=== PATIENT | male | born 1995 | race Caucasian/White ===

== ENCOUNTER 2017-02-21 22:46 | Emergency (ER) | payer SELFPAY ==
[2017-02-22 01:24] VITALS: BP 130/65
--- NOTE | 2017-05-10 11:15 | ED ---
Medical Screening - HPI Summary HPI Summary: Patient presents requesting STD testing to establish a baseline status. He has had unprotected sex in the past but denies symptoms. - History of Current Complaint Chief Complaint: EDGeneral Stated Complaint: STD TESTING Time Seen by Provider: 02/22/17 00:52 Onset/Duration: Atraumatic Associated Signs and Symptoms: Negative PMH/Surg Hx/FS Hx/Imm Hx Previously Healthy: Yes Infectious Disease History: No Infectious Disease History: Denies: Traveled Outside the [place] in Last 30 Days - Family History Known Family History: Positive: None - Social History Occupation: Employed Full-time Lives: With Family Alcohol Use: None Substance Use Type: Reports: None Smoking Status (MU): Never Smoked Tobacco Type: Smokeless Tobacco Cessation Counseling: Patient Advised to Stop Review of Systems All Other Systems Reviewed And Are Negative: Yes Physical Exam Triage Information Reviewed: Yes Vital Signs On Initial Exam: Initial Vitals Temp Pulse Resp BP Pulse Ox 98.3 F 85 18 137/57 100 02/21/17 23:50 02/21/17 23:50 02/21/17 23:50 02/21/17 23:50 02/21/17 23:50 Vital Signs Reviewed: Yes Appearance: Positive: Well-Appearing, No Pain Distress, Well-Nourished Skin: Positive: Warm, Skin Color Reflects Adequate Perfusion, Dry, Soft Head/Face: Positive: Normal Head/Face Inspection Eyes: Positive: EOMI, JENNIFER, Conjunctiva Clear ENT: Positive: Hearing grossly normal Respiratory/Lung Sounds: Positive: Breath Sounds Present Cardiovascular: Positive: RRR Musculoskeletal: Negative: Edema Left, Edema Right Neurological: Positive: Sensory/Motor Intact, Alert, Oriented to Person Place, Time, Normal Gait Psychiatric: Positive: Affect/Mood Appropriate AVPU Assessment: Alert Diagnostics - Vital Signs Vital Signs Temp Pulse Resp BP Pulse Ox 02/22/17 01:20 99 F 76 18 130/65 98 02/21/17 23:50 98.3 F 85 18 137/57 100 - Laboratory Lab Results: Lab Results 02/22/17 02/22/17 02/22/17 Range/Units 01:49 01:49 01:50 C.trachomatis (Amp Det) Negative (Negative) Hepatitis B Antibody Nonreactive (Nonreactive) Hep Bs Antigen Nonreactive (Nonreactive) Hep Bs Antibody, Quant < 3.10 (<12) mIU/mL Hepatitis C Antibody Nonreactive (Nonreactive) HIV 1&2 Antibody Nonreactive (Nonreactive) N.gonorrhoeae (Amp Det) Negative (Negative) Lab Statement: Any lab studies that have been ordered have been reviewed, and results considered in the medical decision making process. Course/Dx - Diagnoses Provider Diagnoses: Screen for STD (sexually transmitted disease) Discharge - Discharge Plan Condition: Stable Disposition: HOME Patient Education Materials: Sexually Transmitted Diseases (ED), Safe Sex (ED) Referrals: Valerie Shipman MS [Primary Care Provider] - Additional Instructions: If you have positive results you will be called by the emergency department to discuss a treatment plan. Follow-up with your primary care provider for further concerns.
== END 2017-02-22 02:00 | disposition home or self-care (01) ==
LOC: ED 22:46
DX: Z20.2 Contact with and (suspected) exposure to infections with a predominantly sexual mode of transmission (principal); Z11.3 Encounter for screening for infections with a predominantly sexual mode of transmission
CPT/HCPCS: 36415; 86703; 86706; 86803; 87340; 87491; 87591; 99282

== ENCOUNTER 2017-02-25 23:17 | Emergency (ER) | payer SELFPAY ==
[2017-02-25 23:23] VITALS: BP 150/69
--- NOTE | 2017-02-26 08:04 | RAD ---
INDICATION: Neck pain COMPARISON: Cervical spine January 13, 2015 TECHNIQUE: Routine five-view imaging was performed FINDINGS: Bones: There are no acute bony findings. There are no significant osteoarthritic findings. Craniocervical junction: The odontoid and atlantodental interval are normal. Alignment: Chronic reversal normal cervical lordosis Disc spaces: The disc spaces are well-maintained Soft tissues: The prevertebral soft tissues are normal. IMPRESSION: CHRONIC REVERSAL NORMAL CERVICAL LORDOSIS, OTHERWISE NEGATIVE
== END 2017-02-26 01:50 | disposition left against medical advice (07) ==
LOC: ED 23:17
DX: M54.2 Cervicalgia (principal); Z53.21 Procedure and treatment not carried out due to patient leaving prior to being seen by health care provider
CPT/HCPCS: 72050

== ENCOUNTER 2017-03-26 13:30 | Emergency (ER) | payer SELFPAY ==
[2017-03-26 15:33] VITALS: BP 139/75
--- NOTE | 2017-03-26 16:21 | UC ---
Throat Pain/Nasal Jakob HPI - HPI Summary HPI Summary: 21 y/o male presents to the urgent clinic /o of sore throat constantine yesterday. Patient state he also has mild fever, headache and difficulty swallowing. Patient denies SOB, cough, nasal discharge, N/V/D. - History of Current Complaint Chief Complaint: UCRespiratory Stated Complaint: SORE THROAT, HEADACHE Time Seen by Provider: 03/26/17 16:04 Hx Obtained From: Patient Onset/Duration: Sudden Onset, Lasting Hours, Still Present Severity: Moderate Pain Intensity: 4 - headache Pain Scale Used: 0-10 Numeric Cough: None Associated Signs & Symptoms: Positive: Dysphagia, Fever. Negative: Sinus Discomfort, Nasal Discharge, Vomiting, Rash - Epiglottits Risk Factors Epiglottis Risk Factors: Negative - Allergies/Home Medications Allergies/Adverse Reactions: Allergies Allergy/AdvReac Type Severity Reaction Status Date / Time Bee Venom Allergy Swelling Verified 03/26/17 15:28 Of Face,Lips,& Throat PMH/Surg Hx/FS Hx/Imm Hx Previously Healthy: Yes - Surgical History Surgical History: None - Family History Known Family History: Positive: Diabetes - Social History Occupation: Employed Full-time Alcohol Use: None Substance Use Type: None Smoking Status (MU): Never Smoked Tobacco Type: Smokeless Tobacco Review of Systems Constitutional: Fever - mild Skin: Negative Eyes: Negative ENT: Sore Throat, Other - difficulty swallowing Respiratory: Negative Cardiovascular: Negative Genitourinary: Negative Motor: Negative Neurovascular: Negative Musculoskeletal: Negative Neurological: Negative Psychological: Negative All Other Systems Reviewed And Are Negative: Yes Physical Exam Triage Information Reviewed: Yes Appearance: Well-Appearing, No Pain Distress, Well-Nourished, Thin Vital Signs: Initial Vital Signs Temp 98.2 F 03/26/17 15:29 Pulse 79 03/26/17 15:29 Resp 16 03/26/17 15:29 BP 139/75 03/26/17 15:29 Pulse Ox 99 03/26/17 15:29 Vital Signs Reviewed: Yes Eye Exam: Normal ENT: Positive: Hearing grossly normal, Pharyngeal erythema, Tonsillar swelling, Tonsillar exudate. Negative: Nasal drainage, TMs normal Dental Exam: Normal Neck exam: Normal Neck: Positive: Supple, Nontender, Enlarged Nodes @ - mildly tender anterior cervical lymphnodes Respiratory Exam: Normal Respiratory: Positive: Chest non-tender, Lungs clear, Normal breath sounds Cardiovascular Exam: Normal Cardiovascular: Positive: RRR, No Murmur, Pulses Normal Abdominal Exam: Normal Abdomen Description: Positive: Nontender, No Organomegaly Bowel Sounds: Positive: Present Musculoskeletal Exam: Normal Neurological Exam: Normal Psychological Exam: Normal Skin Exam: Normal Throat Pain/Nasal Course/Dx - Course Course Of Treatment: Pharyngitis:21 y/o male presents to the urgent clinic /o of sore throat constantine yesterday. Patient state he also has mild fever, headache and difficulty swallowing. Patient denies SOB, cough, nasal discharge, N/V/D. PE:Pharyngeal erythema, Tonsillar swelling, Tonsillar exudate. Negative: Nasal drainage, TMs normal. Rapid strep ordered. result:negative. Most likely viral pharyngitis. - Differential Dx/Diagnosis Differential Diagnosis/HQI/PQRI: Laryngitis, Mononucleosis, Pharyngitis, Sinusitis, Tonsillitis, URI Provider Diagnoses: Pharyngitis, headache Discharge - Discharge Plan Condition: Stable Disposition: HOME Prescriptions: Ibuprofen TAB* [Motrin TAB* 600 MG] 600 mg PO Q6H PRN #20 tab PRN Reason: Pain Patient Education Materials: Pharyngitis (ED) Forms: *Work Release Referrals: Zoie ALCOCERP,Valerie [Primary Care Provider] - Additional Instructions: Please take medications as instructed to alleviate symptoms. If symptoms worsen please retun to the urgent care or follow up with your PCP for further evaluation and treatment.
== END 2017-03-26 16:49 | disposition home or self-care (01) ==
LOC: UCEAST 13:30
DX: J02.9 Acute pharyngitis, unspecified (principal); R51 Headache; Z91.030 Bee allergy status; Z77.22 Contact with and (suspected) exposure to environmental tobacco smoke (acute) (chronic)
CPT/HCPCS: 87651; 99212; G0463

== ENCOUNTER 2017-04-12 09:17 | Emergency (ER) | payer SELFPAY ==
--- NOTE | 2017-04-12 09:47 | UC ---
Throat Pain/Nasal Jakob HPI - History of Current Complaint Chief Complaint: UCRespiratory Stated Complaint: THROAT COMPLAINT Hx Obtained From: Patient Onset/Duration: Gradual Onset - has had URI symps for 3 weeks, was seen here 3 weeks ago and dx URI (no meds Rx'd). seemed a bit better until 2 days ago when throat became very sore and this am he feels worse, body aches, ST. tried tylenol but not helping anymore Associated Signs & Symptoms: Positive: Negative - Allergies/Home Medications Allergies/Adverse Reactions: Allergies Allergy/AdvReac Type Severity Reaction Status Date / Time Bee Venom Allergy Swelling Verified 04/12/17 09:32 Of Face,Lips,& Throat PMH/Surg Hx/FS Hx/Imm Hx Previously Healthy: Yes - Surgical History Surgical History: None - Family History Known Family History: Positive: Diabetes - Social History Occupation: Employed Full-time - [employer] Alcohol Use: Rare Substance Use Type: None Smoking Status (MU): Never Smoked Tobacco Type: Smokeless Tobacco Review of Systems Constitutional: Chills, Other - body aches today Skin: Negative ENT: Sore Throat Respiratory: Cough - mild, dry "because of my ST" Cardiovascular: Negative Gastrointestinal: Negative Psychological: Negative All Other Systems Reviewed And Are Negative: Yes Physical Exam Triage Information Reviewed: Yes Appearance: Well-Appearing, No Pain Distress, Well-Nourished Vital Signs: Initial Vital Signs Temp 100.3 F 04/12/17 09:26 Pulse 93 04/12/17 09:26 Resp 16 04/12/17 09:26 Pulse Ox 97 04/12/17 09:26 Vital Signs Reviewed: Yes Eyes: Positive: Conjunctiva Clear ENT: Positive: Pharyngeal erythema, TMs normal, Tonsillar swelling Neck: Positive: Enlarged Nodes @ - L ant cervical Respiratory Exam: Normal Respiratory: Positive: Lungs clear Cardiovascular Exam: Normal Abdominal Exam: Normal Psychological Exam: Normal Skin Exam: Normal Throat Pain/Nasal Course/Dx - Differential Dx/Diagnosis Differential Diagnosis/HQI/PQRI: Pharyngitis, Tonsillitis, URI, Other - strep throat Provider Diagnoses: strep throat Discharge - Discharge Plan Condition: Stable Disposition: HOME Prescriptions: Azithromycin TAB* [Zithromax TAB (Z-ALANA) 250 mg #6 tabs] 2 tab PO .TODAY, THEN 1 DAILY #1 alana Patient Education Materials: Strep Throat (ED) Referrals: Zoie ALCOCERP,Valerie [Primary Care Provider] - 3 Days (if no better) Additional Instructions: drink plenty of fluids use ibuprofen 600-800mg every 6 hours as needed for pain take zithromax as prescribed
== END 2017-04-12 10:13 | disposition home or self-care (01) ==
LOC: UCEAST 09:17
DX: J02.0 Streptococcal pharyngitis (principal)
CPT/HCPCS: 87651; 99212; G0463

== ENCOUNTER 2018-02-13 22:41 | Emergency (ER) | payer SELFPAY ==
[2018-02-14 01:05] VITALS: BP 138/67
--- NOTE | 2018-02-14 01:34 | UC ---
Upper Extremity HPI - HPI Summary HPI Summary: C/O LEFT SIDE NECK PAIN, AND LEFT UE TINGLING X 3 DAYS. HX OF SAME ONCE ONE MONTH AGO. 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 DENIES SPECIFIC TRAUMA EVENT, LOSS OF SENSATION OR FUNCTION DISTALLY IN LEFT UE, ANDERSON, NECK STIFFNESS, N/V, FEVER. HAS NOT TAKEN MEDICATION. MED HX = NONE - History of Current Complaint Chief Complaint: EDGeneral Stated Complaint: NUMBNESS IN NECK AND LT ARM Time Seen by Provider: 02/14/18 00:08 Hx Obtained From: Patient Onset/Duration: Gradual Onset Severity Initially: Mild Severity Currently: Moderate Pain Intensity: 3 Pain Scale Used: 0-10 Numeric Location Of Pain: Is Discrete @, Radiates To - LEFT UE Character: Sharp, Aching Aggravating Factor(s): Internal/External Rotation Alleviating Factor(s): Rest Associated Signs And Symptoms: Positive: Numbness/Tingling Related History: Similar Episode/Dx As - Risk Factors DVT Risk Factors: Negative Septic Arthritis Risk Factor: Negative Compartment Syndrome Risk Factors: Pain - Allergies/Home Medications Allergies/Adverse Reactions: Allergies Allergy/AdvReac Type Severity Reaction Status Date / Time bee venom protein (honey bee) Allergy Swelling Verified 02/13/18 22:49 Of Face,Lips,& Throat Home Medications: Home Medications NK [No Home Medications Reported] 02/14/18 [History Confirmed 02/14/18] PMH/Surg Hx/FS Hx/Imm Hx Previously Healthy: Yes - Surgical History Surgical History: None - Family History Known Family History: Positive: Diabetes - Social History Alcohol Use: Rare Substance Use Type: None Smoking Status (MU): Never Smoked Tobacco Type: Smokeless Tobacco Review of Systems Constitutional: Negative Skin: Negative Eyes: Negative ENT: Negative Respiratory: Negative Cardiovascular: Negative Gastrointestinal: Negative Genitourinary: Negative Motor: Negative Neurovascular: Negative Musculoskeletal: Myalgia Neurological: Negative Psychological: Negative Is Patient Immunocompromised?: No All Other Systems Reviewed And Are Negative: Yes Physical Exam Triage Information Reviewed: Yes Appearance: Well-Appearing Vital Signs: Initial Vital Signs Temp 98.8 F 02/13/18 22:45 Pulse 100 02/13/18 22:45 Resp 20 02/13/18 22:45 BP 144/80 02/13/18 22:45 Pulse Ox 96 02/13/18 22:45 Vital Signs Reviewed: Yes Eye Exam: Normal Eyes: Positive: Conjunctiva Clear Neck: Positive: Supple, Tenderness @ - LEFT TRAPEZIUS TTP. Respiratory Exam: Normal Respiratory: Positive: Chest non-tender Cardiovascular Exam: Normal Abdominal Exam: Normal Musculoskeletal: Positive: Strength Intact, ROM Intact Neurological Exam: Normal Psychological Exam: Normal Skin Exam: Normal - Additional Comments NO SWELLING, ECHYMOSIS, DEFORMITY, EXTRA WARMTH, ERYTHEMA TO LEFT SIDE NECK , LEFT SHOULDER OR LEFT ARM. PMS INTACT DISTALLY. FULL ROM LEFT SHOULDER AND ARM. OILER BANDER STRENGTH NML. TTP OF LEFT TRAPEZIUS AND LEFT STERNOCLEIDOMASTOID MUSCLES. FULL ROM OF NECK. Diagnostics - Radiology c spine Xray Interpretation: No Acute Changes Upper Extremity Course/Dx - Differential Dx/Diagnosis Provider Diagnoses: cervical radiculopathy Discharge - Sign-Out/Discharge Documenting (check all that apply): Discharge - Discharge Plan Condition: Stable Disposition: HOME Patient Education Materials: Cervical Radiculopathy (ED), Neck Pain (ED) Referrals: Estuardo Randolph MD [Medical Doctor] - Zoie MS SIZE TESTER,Valerie [Primary Care Provider] - Additional Instructions: FOLLOW UP WITH ORTHOPEDICS DR RANDOLPH. RETURN TO ED FOR ANY NEW OR WORSENING SYMPTOMS. - Billing Disposition and Condition Condition: STABLE Disposition: HOME
--- NOTE | 2018-02-14 08:34 | RAD ---
Indication: Neck pain. 5 views of the cervical spine demonstrates vertebral bodies to be normal in height. Disc spaces all well-preserved. Spinal canal appears to be intact. No prevertebral soft tissue swelling is noted. IMPRESSION: No fracture of the cervical spine is noted.
== END 2018-02-14 02:52 | disposition home or self-care (01) ==
LOC: ED 22:41
DX: M54.12 Radiculopathy, cervical region (principal)
CPT/HCPCS: 72050; 99281

== ENCOUNTER 2018-02-19 11:31 | Emergency (ER) | payer SELFPAY ==
[2018-02-19 11:47] VITALS: BP 143/73
--- NOTE | 2018-02-19 12:10 | UC ---
Throat Pain/Nasal Jakob HPI - HPI Summary HPI Summary: 22 yo WM c/o sore throat x 2-3 days, looked in throat and saw "white spots" associated with chills - History of Current Complaint Chief Complaint: UCGeneralIllness Stated Complaint: SORE THROAT Time Seen by Provider: 02/19/18 11:42 Hx Obtained From: Patient Onset/Duration: Lasting Days Severity: Moderate Pain Intensity: 3 Cough: None Associated Signs & Symptoms: Positive: Negative - Allergies/Home Medications Allergies/Adverse Reactions: Allergies Allergy/AdvReac Type Severity Reaction Status Date / Time bee venom protein (honey bee) Allergy Swelling Verified 02/13/18 22:49 Of Face,Lips,& Throat PMH/Surg Hx/FS Hx/Imm Hx Previously Healthy: Yes - Surgical History Surgical History: None - Family History Known Family History: Positive: Diabetes - Social History Alcohol Use: Rare Substance Use Type: None Smoking Status (MU): Never Smoked Tobacco Type: Smokeless Tobacco Review of Systems Constitutional: Chills Skin: Negative Eyes: Negative ENT: Sore Throat Respiratory: Negative Cardiovascular: Negative Gastrointestinal: Negative Genitourinary: Negative Motor: Negative Neurovascular: Negative Musculoskeletal: Negative Neurological: Negative Psychological: Negative All Other Systems Reviewed And Are Negative: Yes Physical Exam Triage Information Reviewed: Yes Appearance: Well-Appearing Vital Signs: Initial Vital Signs Temp 36.4 C 02/19/18 11:44 Pulse 100 02/19/18 11:44 Resp 18 02/19/18 11:44 BP 143/73 02/19/18 11:44 Pulse Ox 100 02/19/18 11:44 Vital Signs Reviewed: Yes ENT: Positive: TMs normal, Tonsillar swelling, Tonsillar exudate Neck exam: Normal Neck: Positive: Supple Respiratory: Positive: Lungs clear Cardiovascular Exam: Normal Abdominal Exam: Normal Musculoskeletal Exam: Normal Psychological Exam: Normal Skin Exam: Normal Throat Pain/Nasal Course/Dx - Course Course Of Treatment: rapid strep neg for strep gp A, will send out for cx, and tx for Exudative pharyngitis with clindamycin PO - Differential Dx/Diagnosis Provider Diagnoses: exudative pharyngitis Discharge - Sign-Out/Discharge Documenting (check all that apply): Discharge/Admit/Transfer - Discharge Plan Condition: Stable Disposition: HOME Prescriptions: Clindamycin HCl 300 mg PO TID 10 Days #30 capsule Patient Education Materials: Pharyngitis (ED) Referrals: Zoie DANIELS,Valerie [Primary Care Provider] - - Billing Disposition and Condition Condition: STABLE Disposition: HOME
== END 2018-02-19 13:30 | disposition home or self-care (01) ==
LOC: UCEAST 11:31
DX: J02.9 Acute pharyngitis, unspecified (principal); Z91.030 Bee allergy status
CPT/HCPCS: 87070; 87491; 87591; 87651; 99212; G0463

== ENCOUNTER 2018-06-12 17:34 | Emergency (ER) | payer SELFPAY ==
[2018-06-12] MEDS ORDERED: diPHENhydraMINE PO* 25 MG PO ONE (17:53)
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
[2018-06-12 18:52] VITALS: BP 128/64
== END 2018-06-12 18:51 | disposition home or self-care (01) ==
LOC: ED 17:34
DX: S80.862A Insect bite (nonvenomous), left lower leg, initial encounter (principal); S80.861A Insect bite (nonvenomous), right lower leg, initial encounter; S00.86XA Insect bite (nonvenomous) of other part of head, initial encounter; W57.XXXA Bitten or stung by nonvenomous insect and other nonvenomous arthropods, initial encounter; Y92.9 Unspecified place or not applicable; Z91.030 Bee allergy status
CPT/HCPCS: 99282; A9270-GY

== ENCOUNTER 2018-08-01 19:02 | Emergency (ER) | payer SELFPAY ==
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
[2018-08-01 20:40] VITALS: BP 128/65
== END 2018-08-01 20:39 | disposition home or self-care (01) ==
LOC: ED 19:02
DX: J02.9 Acute pharyngitis, unspecified (principal)
CPT/HCPCS: 87491; 87591; 87651; 99282